=== PATIENT | male | born 1950 | race Caucasian/White ===

== ENCOUNTER 2019-06-22 07:30 | Inpatient (IN) ==
[2019-06-14 10:27] LABS: Basophils # (Auto) 0.1 K/mcL (0.0-0.3); Basophils % (Auto) 0.6 % (0.0-2.0); Eosinophils # (Auto) 0.5 K/mcL (0.0-0.7); Eosinophils % (Auto) 4.5 % (0.0-7.0); Granulocytes % (Auto) 74.2 % (38.0-78.0); Hematocrit 40.9 % (41.0-55.0); Hemoglobin 13.7 g/dL (13.5-16.5); Lymphocytes # (Auto) 1.3 K/mcL (1.5-4.8); Lymphocytes % (Auto) 11.3 % (15.5-49.0); Mean Cell Volume 91.7 fL (80.0-100.0); Mean Corpuscular HGB Conc 33.5 g/dL (31.0-36.0); Mean Platelet Volume 8.4 fL (7.4-10.4); Monocytes # (Auto) 1.1 K/mcL (0.1-0.9); Monocytes % (Auto) 9.4 % (1.0-12.0); Platelet Count 262 K/mcL (140-440); RBC 4.45 M/mcL (4.50-5.90); Red Cell Distribution Width 14.2 % (11.5-14.5); WBC 11.4 K/mcL (4.5-11.0)
[2019-06-14 10:38] LABS: Blood Urea Nitrogen 16 mg/dl (8-23); Calcium 9.2 mg/dl (8.6-10.4); Carbon Dioxide 24 mmol/L (22-30); Chloride 103 mmol/L (96-108); Glomerular Filtration Rate 67; Glucose 103 mg/dL (70-105)
[2019-06-14 12:56] LABS: Appearance,Urine CLEAR; Bilirubin,Urine NEG (NEG); Color,Urine YELLOW; Culture Indicated,Urine NO; Glucose,Urine (UA) NEGATIVE (NEG); Ketones,Urine NEG (NEG); Leukocyte Esterase,Urine NEG /uL (NEG); Nitrate,Urine NEG (NEG); Protein,Urine NEG (NEG); Specific Gravity,Urine 1.015 (1.000-1.035); Urine Blood NEG mg/dL (<0.03); Urobilinogen,Urine NEG (NEG)
[~2019-06-22 07:30] MED LIST: CELECOXIB 200 MG CAPSULE PO SCH; IPRATROPIUM/ALBUTEROL 3 ML AMPUL.NEB NEB PRN; PREGABALIN 75 MG CAPSULE PO SCH; SCOPOLAMINE 1 PATCH PATCH TOPICAL PRN; ceFAZolin 2 GM in DEXTROSE 5% IN WATER 50 ML IV SCH; oxyCODONE 10 MG TAB.ER.12H PO SCH
[2019-06-22] MEDS ORDERED: GENTAMICIN SULFATE 800 MG/20 ML VIAL IR ONE (10:10)
[2019-06-22] MEDS ORDERED: TRANEXAMIC ACID 1,000 MG/10 ML VIAL IV ONE (12:50)
[2019-06-22] MEDS ORDERED: DEXAMETHASONE 10 MG/ML VIAL IV ONE (12:50)
[2019-06-22] MEDS ORDERED: LIDOCAINE HCL/PF 100 MG/5 ML SYRINGE IV ONE (12:50)
[2019-06-22] MEDS ORDERED: ONDANSETRON 4 MG/2 ML VIAL IV ONE (12:50)
[2019-06-22] MEDS ORDERED: fentaNYL 100 MCG/2 ML VIAL IV ONE (12:50)
[2019-06-22] MEDS ORDERED: ROPIVACAINE HCL/PF 20 ML VIAL IJ ONE (12:50)
[2019-06-22] MEDS ORDERED: PROPOFOL 200 MG/20 ML VIAL IV ONE (12:50)
[2019-06-22] MEDS ORDERED: ePHEDrine 50 MG/ML AMPUL IV ONE (12:50)
--- NOTE | 2019-06-22 14:10 | Brief Operative Note ---
Date of procedure: 06/22/19 Pre-op diagnosis: right shoulder rotator cuff arthropathy, biceps tendonitis Post-op diagnosis: same Procedure: right reverse total shoulder arthroplasty, biceps tenodesis Grafts/Implants: Yes Anesthesia: GETA Complications: none Surgeon: Jey Ortiz Sales Professional: Therese Menard Estimated blood loss (cc): 200 Specimens Removed/Pathology: none sent Condition: stable Disposition: PACU
[2019-06-22] MEDS ORDERED: POLYETHYLENE GLYCOL 3350 17 GM PACKET PO PRN (14:11)
[2019-06-22] MEDS ORDERED: TRANEXAMIC ACID 1,000 MG/10 ML VIAL IV SCH (14:11)
[2019-06-22] MEDS ORDERED: BENZOCAINE/MENTHOL 1 LOZENGE PO PRN (14:11)
[2019-06-22] MEDS ORDERED: KETOROLAC 15 MG/ML VIAL IV PRN (14:11)
[2019-06-22] MEDS ORDERED: FLEETS ADULT ENEMA PR PRN (14:11)
[2019-06-22] MEDS ORDERED: BISACODYL 10 MG SUPP.RECT PR PRN (14:11)
[2019-06-22] MEDS ORDERED: MAGNESIUM HYDROXIDE 30 ML ORAL.SUSP PO PRN (14:11)
[2019-06-22] MEDS ORDERED: ONDANSETRON 4 MG/2 ML VIAL IV PRN ×2 (14:11→14:36)
[2019-06-22] MEDS ORDERED: ONDANSETRON 4 MG ODT TABLET SL PRN (14:11)
[2019-06-22] MEDS ORDERED: METHOCARBAMOL 750 MG TABLET PO PRN (14:11)
--- NOTE | 2019-06-22 14:11 | Discharge Summary ---
Ortho Discharge - TSA - Patient Instructions Diet: Regular Diet Activity: non weight bearing Total Shoulder Protocol: Leave immobilizer in place except for bathing and ROM. Abduction pillow. Continue to wear sling until seen by physician. Codman Pendulum : These exercises use momentum produced by your body to move your shoulder joint. Bend your knees and shift your weight to your front leg, then back, allowing your arm to swing in the same directions. Using the same technique, alternately shift your weight between your right and left legs, allowing your arm to swing from side to side. These exercises are also performed in counterclockwise and clockwise circular motions. Typically these exercises are performed several times per day, for a set number repetitions or minutes, such as 20 times in a row or 5 minutes at a time. Dressing Care: May shower in 2 days - Follow Up Plan Follow Up Appointments: Therese Menard PA-C [Physician Custodial Engineer] - 07/07/19 11:00 am Disposition: Home, Self-Care Prognosis: Good Rehab Potential: Good I certify that the patient requires SNF services: No Overall status at discharge: patient is progressing back to baseline
[2019-06-22] MEDS ORDERED: MEPERIDINE 25 MG/ML SYRINGE IV PRN (14:36)
[2019-06-22] MEDS ORDERED: IPRATROPIUM/ALBUTEROL 3 ML AMPUL.NEB NEB PRN (14:36)
[2019-06-22] MEDS ORDERED: METHOCARBAMOL 1,000 MG/10 ML VIAL IV PRN (14:36)
[2019-06-22] MEDS ORDERED: ACETAMINOPHEN 1,000 MG/100 ML BOTTLE IV ONE (14:36)
[2019-06-22] MEDS ORDERED: fentaNYL 100 MCG/2 ML VIAL IV PRN (14:36)
--- NOTE | 2019-06-22 14:39 | Operative Note ---
DATE OF OPERATION: 06/22/2019 PREOPERATIVE DIAGNOSES: 1. Right shoulder rotator cuff tear arthropathy. 2. Right shoulder proximal biceps tendinitis. POSTOPERATIVE DIAGNOSES: 1. Right shoulder rotator cuff tear arthropathy. 2. Right shoulder proximal biceps tendinitis. PROCEDURE PERFORMED: 1. Right reverse total shoulder arthroplasty. 2. Right shoulder proximal biceps soft tissue tenodesis. SURGEON: Theodora Ortiz M.D. DIRECTOR OF OPERATIONS HOME HEALTH SURGEON: Therese Menard PA-C. The PA's assistance was required for the safe and efficient completion of the entire case. This provider's expertise and technical skill were required throughout the case. The PA assisted with preoperative coordination, intraoperative retraction, wound closure, dressing and splint application, as well as postoperative documentation and care coordination. ANESTHESIA: General. ESTIMATED BLOOD LOSS: 200 mL. COMPLICATIONS: None noted. SPECIMENS REMOVED: None. DRAINS: None. IMPLANTS: DePuy Delta Xtend cementless metaglene; DePuy Delta Xtend locking metaglene screw 4.5 x 24 and 4.5 x 30, nonlocking metaglene screw 4.5 x 18 (x2); DePuy Delta Xtend glenosphere standard 38 mm; DePuy Delta Xtend modular eccentric epiphysis size 2 right, VANCE-coated, cementless; DePuy Delta Xtend modular humeral stem size 14, VANCE-coated, cementless; DePuy Delta Xtend humeral polyethylene cup standard 38, +6. INDICATIONS: The patient has had a longstanding history of worsening pain in the shoulder that has failed conservative treatment. Radiographs have confirmed advanced degenerative joint disease and a failed rotator cuff. After a long discussion about treatment options, the patient elected to proceed with a reverse total shoulder arthroplasty. The risks and benefits were discussed with the patient in detail including, but not limited to, the risks of anesthesia, problems with the heart or lungs related to anesthesia, infection, compromise or injury to the nerves and blood vessels, deep venous thrombosis, pulmonary embolism, pneumonia, continued pain after surgery, worsening pain or symptoms after surgery, swelling, loss of motion, instability, fracture, arm length discrepancy, and need for repeat surgery. DESCRIPTION OF PROCEDURE: The patient was seen in the preanesthesia waiting room where all questions were answered and the correct side and site were identified and marked. The patient was transferred to the operating room and administered the anesthetic and given preoperative antibiotics. A time-out was then called. The patient was placed in the modified beach chair position with all prominences well padded. The extremity was prepped and draped from the fingers up to the neck. A standard deltopectoral skin incision was created. Dissection was carried down to the deltopectoral groove and the cephalic vein was isolated medially and retracted laterally with the deltoid. Retractors were placed and the coracobrachialis was split up to the coracoacromial ligament allowing retraction of the conjoined tendon. We split the subscapularis 1 cm medial to the bicipital groove and extended the split into the rotator interval. This was tagged for later repair. The supraspinatus and infraspinatus had been previously torn and retracted. The biceps was cut and a soft tissue tenodesis was performed into the anterior shoulder with #2 FiberWire. A capsular release was performed in a posterior subperiosteal direction along the humerus. The humeral head was then dislocated. We established intramedullary access and hand reamed up to get good cortical chatter with the DePuy Delta XTEND reverse total shoulder instrumentation. We then used the intramedullary guide and set to about 5 degrees of retroversion. The proximal humerus cut was performed and osteophytes were removed. A metal protector plate was then placed. Attention was then turned to the glenoid. Retractors were placed for optimal visualization and the labrum was excised in its entirety. A centralizing Steinmann pin was placed just into the posterior inferior quadrant in a standard fashion. We reamed over the pin to remove all the cartilage and get to a good base for the prosthesis. The drill was then placed over for the central peg. A cementless Metaglene was then impacted into place. We then drilled, measured, and placed the four screws starting inferior, then superior, then anterior, and finally posterior. The superior locking screw was lined up at the base of the coracoid process. We then impacted the head onto the Metaglene and tightened down in a standard fashion. Attention was then turned back to the humerus. Proximal reaming was performed off the intramedullary guide into the humeral head, using the eccentric guide to allow best coverage. We again set version and broached up to a stable implant. Trials were placed and good tension, motion, and stability were obtained at this point. Trials were removed and the final press fit femoral prosthesis was impacted into place with measured version. The final polyethylene was placed and the shoulder was reduced and again checked for motion, tension, and stability. We irrigated with 3 liters of antibiotic saline and closed the subscapularis with # 2 FiberWire. We irrigated again and closed the deltopectoral interval with several # 0 Vicryl figure of eight sutures. The subcutaneous layer was closed with 2-0 Vicryl and the skin was closed with 4-0 Monocryl in a subcuticular fashion. A sterile pressure dressing was applied and the patient was placed into an abduction sling. All needle and sponge counts were correct. The patient was transferred to the recovery room in stable condition. ` [email or web address] Job ID: [id number] Doc ID: [id number] Theodora Ortiz MD
[2019-06-22] MEDS ORDERED: LACTATED RINGERS 1,000 ML IV SCH (14:45)
--- NOTE | 2019-06-22 15:14 | XRay Report ---
CLINICAL INFORMATION: Postsurgical follow-up TECHNIQUE: AP and axillary views of the right shoulder COMPARISON: None. FINDINGS: Status post right reverse shoulder arthroplasty. There is postsurgical intra-articular soft tissue gas. Alignment is anatomic IMPRESSION: Previous right reverse shoulder arthroplasty Interpreted and Authenticated by: Jey Norris 06/22/19
[2019-06-22] MEDS: LACTATED RINGERS 1,000 ML IV SCH (18:03)
[2019-06-22] MEDS: ceFAZolin 1 GM VIAL IV SCH (20:14)
[2019-06-22] MEDS: CARBIDOPA/LEVODOPA 25/100 TABLET PO SCH (20:26)
[2019-06-22] MEDS: DOCUSATE SODIUM 100 MG CAPSULE PO SCH (20:26)
[2019-06-22] MEDS: 0.9 % SODIUM CHLORIDE 10 ML SYRINGE IV SCH (20:27)
[2019-06-22] MEDS: TACROLIMUS 0.5 MG CAPSULE PO SCH (20:27)
[2019-06-22] MEDS ORDERED: ATORVASTATIN 40 MG TABLET PO SCH (21:00)
[2019-06-22] MEDS ORDERED: Doxepin Hcl [Silenor] 3 MG PO SCH (21:00)
[2019-06-22] MEDS ORDERED: SENNOSIDES 1 TABLET PO SCH (21:00)
[2019-06-22] MEDS ORDERED: rOPINIRole 1 MG TABLET PO SCH (21:00)
[2019-06-23] MEDS: HYDROcodone/APAP 10/325MG TABLET PO PRN ×2 (01:19→08:21)
[2019-06-23] MEDS: LACTATED RINGERS 1,000 ML IV SCH ×2 (01:27→06:15)
[2019-06-23] MEDS: ceFAZolin 1 GM VIAL IV SCH (04:19)
[2019-06-23] MEDS: 0.9 % SODIUM CHLORIDE 10 ML SYRINGE IV SCH (04:30)
[2019-06-23 05:31] LABS: Hematocrit 38.3 % (41.0-55.0); Hemoglobin 12.5 g/dL (13.5-16.5)
--- NOTE | 2019-06-23 07:01 | Orthopedic Progress Note ---
Subjective Patient information: Note initiated : 06/23/19 at 6:59 am Service Date, if different from initiated Date: [] Patient: Oumar Masterson 69 y/o M admitted on 06/22/19 for Right Reverse Total Shoulder Arthroplasty. Chief Complaint: [] Interval history: doing well. no complaints Objective Vital signs: Vital Signs Temp Pulse Resp BP Pulse Ox 06/23/19 04:02 97.9 F 65 16 129/67 94 06/22/19 23:40 97.7 F 64 16 129/85 94 06/22/19 19:02 97.7 F 74 16 116/72 93 06/22/19 18:10 70 16 134/78 95 06/22/19 17:10 69 16 130/81 93 06/22/19 16:40 69 16 137/84 91 06/22/19 15:55 69 16 144/85 100 06/22/19 15:40 66 14 146/87 98 06/22/19 15:25 68 14 142/87 96 06/22/19 15:20 65 06/22/19 15:10 97.5 F 65 14 145/84 91 06/22/19 15:03 97.6 F 65 16 147/82 96 06/22/19 14:57 61 12 150/86 96 06/22/19 14:47 62 16 144/83 100 06/22/19 14:42 60 11 L 150/89 100 06/22/19 14:37 59 L 11 L 138/79 100 06/22/19 14:32 64 12 150/89 100 06/22/19 14:27 98.4 F 60 12 138/79 100 06/22/19 08:45 95 06/22/19 08:06 97.7 F 56 L 18 135/83 97 Intake and Output 06/22/19 06/23/19 06/23/19 21:59 05:59 13:59 Intake Total 100 1225 Output Total 875 1350 Balance -775 -125 Intake: IV 925 Lactated Ringers 1,000 ml @ 125 925 mls/hr IV .Q8H [facility] Rx#: [id number] Oral 100 300 Output: Urine Catheter Amount 875 Straight 875 Void Amount 1350 Other: Urine Appearance Clear Straight Clear Urine Color Bright Yellow Straight Bright Yellow Urine Odor Strong Straight Normal Weight 164 lb Intake & Output: Intake & Output 06/22/19 06/23/19 06/23/19 21:59 05:59 13:59 Intake Total 100 1225 Output Total 875 1350 Balance -775 -125 Weight 164 lb Intake: IV 925 Lactated Ringers 1,000 ml @ 125 925 mls/hr IV .Q8H [facility] Rx#: [id number] Oral 100 300 Output: Urine Catheter Amount 875 Straight 875 Void Amount 1350 Other: Urine Appearance Clear Straight Clear Urine Color Bright Yellow Straight Bright Yellow Urine Odor Strong Straight Normal Incision: Yes healing Incision clean and dry: Yes Dressing: Yes clean, Yes dry, Yes intact Weight bearing status: non Neurological exam IM: Yes alert, Yes oriented X3, Yes motor sensory intact, Yes neurovascular intact Extremities exam IM: No calf tenderness, Yes Foot pink and warm, Yes neurovascular intact - Labs CBC & BMP: 06/23/19 04:15 06/14/19 08:43 Labs: 06/23/19 06/14/19 04:15 08:43 Hgb 12.5 L 13.7 Hct 38.3 L 40.9 L Assessment and Plan (1) Osteoarthritis, shoulder pod 1 s/p reverse total shoulder arthroplasty, biceps nwb pain control sling pt Status: Acute
[2019-06-23] MEDS ORDERED: LEVOTHYROXINE 100 MCG TABLET PO SCH (07:30)
[2019-06-23] MEDS ORDERED: predniSONE 5 MG TABLET PO SCH (08:00)
[2019-06-23] MEDS: TACROLIMUS 0.5 MG CAPSULE PO SCH (08:21)
[2019-06-23] MEDS: CARBIDOPA/LEVODOPA 25/100 TABLET PO SCH (08:21)
[2019-06-23] MEDS: DOCUSATE SODIUM 100 MG CAPSULE PO SCH (08:21)
[2019-06-23] MEDS ORDERED: amLODIPine 5 MG TABLET PO SCH (09:00)
[2019-06-23] MEDS ORDERED: FLU VACC QS2019-20(6MOS UP)/PF 60 MCG/0.5 ML SYRINGE IM ONE (10:00)
== END 2019-06-23 10:20 | disposition home or self-care (01) | DRG 483 ==
LOC: MEDSUR 08:06
PROVIDERS: ADMIT Orthopaedic Surgery Sports Medicine; ATTEND Orthopaedic Surgery Sports Medicine